=== PATIENT | male | born 1985 | race Asian ===

== ENCOUNTER 2019-11-08 11:20 | Emergency (ER) | payer BC, SELFPAY ==
[2019-11-08 11:38] VITALS: BP 111/75; PULSE 95; RESP 15; TEMP 37.1; O2SAT 98; BMI 23.1
--- NOTE | 2019-11-08 12:52 | PC.NURSE ---
Pt states 3 to 4 weeks of back pain and abdominal muscle pain associated with cough and congestion
--- NOTE | 2019-11-08 12:54 | XR_ITS ---
WS: [id number] LUMBAR SPINE 3 VIEWS HISTORY: 34 years old Male with pain AP, cone-down lateral, and lateral views lumbar spine no comparison FINDINGS: Lumbarization of S1. Vertebral body heights are maintained. No fracture, osteolytic or osteoblastic c hange. No vertebral listhesis or facet joint subluxation. Straightening of lumbar lordosis. SI and hi p joints anatomic. Question calculus overlying the left L4 transverse process. Moderate colon fecal r etention. XR/XR lumbar spine 2-3V* [id number] IMPRESSION: 1. Question left ureterolithiasis. Correlate clinically. 2. No lumbar spine fracture or subluxation. 3. Position of S1. 4. Moderate colon fecal retention/impaction.
--- NOTE | 2019-11-08 12:54 | XR_ITS ---
WS: [id number] TWO-VIEW CHEST HISTORY: 34 years old Male with cough, pain PA and lateral chest comparison 03/30/2014 FINDINGS: No pneumothorax, pleural effusion, consolidation/atelectasis. Cardiomediastinal silhouette and pulmon rhona vascular markings are unremarkable. No subdiaphragmatic free air. No fracture seen. XR/XR chest 2V* [id number] IMPRESSION: No acute cardiopulmonary findings, and no significant change from 03/30/2014.
--- NOTE | 2019-11-08 13:01 | W.ED.BACK ---
HPI - Back Pain/Injury General: Chief Complaint: Back Pain/Injury Stated Complaint: BACK PAIN Time Seen by Provider: 11/08/19 12:49 Source: patient Mode of arrival: ambulatory Limitations: no limitations History of Present Illness: HPI Narrative: Patient comes in today with complaints of low back pain for the last 3 weeks. Patient had been seen in Dr. Schaeffer's office and was given some injections in the muscle of the back and given a course of steroids without much relief. Patient comes in today due to tightness and worsening back pain. Patient appears mildly unwell. Patient appears in moderate to severe pain. MD elicited complaint: back pain Review of Systems General: Reports: 10 or more systems reviewed and unremarkable except in HPI and below Resp: Reports: non-productive cough Musc: Reports: back pain PFSH ED PFSH: Statuses (acute, chronic, etc) shown below reflect problem list status as previously entered and may not be historically accurate Social History Smoking and tobacco status: current every day smoker Physical Exam Const: COMMON NORMALS: no apparent distress and oriented x3 GENERAL APPEARANCE: cooperative HENMT: COMMON NORMALS: normocephalic, external ears normal and EAC's normal HEAD & SCALP: normal to inspection and normocephalic FACE & SINUS: normal facial exam NOSE: nasal discharge GENERAL EAR: hearing not grossly impaired EXTERNAL EAR: Yes external ears normal EXTERNAL AUDITORY CANAL: EAC's normal TYMPANIC MEMBRANE: TM normal on the right and TM abnormal TM laterality: left Details: dull, erythematous and fluid behind TM MOUTH: oral and palatal mucosa normal THROAT: posterior oropharynx normal Eye: COMMON NORMALS: PERRL and EOMs intact bilaterally PUPIL: Yes PERRL Neck/C-Spine: COMMON NORMALS: full ROM and no lymphadenopathy Lymph: LYMPHATIC: no lymphedema noted Chest: COMMONS NORMALS: inspection of chest normal and palpation of chest normal Resp: COMMON NORMALS: normal respiratory effort and clear to auscultation bilaterally AUSCULTATION: clear to auscultation bilaterally Cardio: COMMON NORMALS: regular rate and regular rhythm RATE: regular rate RHYTHM: regular rhythm GI: COMMON NORMALS: normal to inspection, nondistended, normoactive bowel sounds and non-tender Back/Pelvis: LUMBAR SPINE/LOWER BACK: Yes paraspinal muscle tenderness and Yes paraspinal muscle spasm Extremity: COMMON NORMALS: normal to inspection GENERAL: No edema Neuro: COMMON NORMALS: oriented x3, moves all extremities and no focal motor deficits Psych: COMMON NORMALS: mental status grossly normal and cooperative Skin: COMMON NORMALS: no rashes or lesions noted GENERAL SKIN EXAM: no rashes or lesions noted Course Vital Signs: Vital signs: Vital Signs Temperature 98.7 F 11/08/19 11:38 Pulse Rate 95 11/08/19 11:38 Respiratory Rate 15 11/08/19 11:38 Blood Pressure 111/75 11/08/19 11:38 Pulse Oximetry 98 11/08/19 11:38 MDM - Back Pain/Injury MDM Narrative: Medical decision making narrative: Patient comes in today with 3-week history of low back pain with muscle spasm. Patient appears in moderate to severe pain. Exam notes tight muscle in the paraspinous lumbar area. No vertebral tenderness is on palpation. Skin is warm and dry. Left tympanic membrane is erythematous and dull. Bilateral nasal mucosal is swollen with drainage. Posterior pharynx erythematous. Differential diagnosis includes influenza, sinusitis, urinary tract infection, renal calculi, constipation, intervertebral disc disease, facet arthropathy. X-ray of the lumbar spine noted possible left kidney stone otherwise normal spinal x-ray. X-ray of the chest was clear without signs of infiltrate or injury. Urinalysis was positive for hematuria. CBC noted some mild leukopenia. CMP was normal. CT scan was ordered due to the abnormality on the x-ray and hematuria. CT scan noted no hydronephrosis or obvious renal/ureteral stone. Large amount of stool was noted in the colon. Patient was given Toradol and orphenadrine in the emergency room for pain and had good results. Patient was prescribed naproxen and methocarbamol for further treatment for pain. Patient was put on cephalexin due to otitis media that was incidentally found. Patient reports understanding of care plan and need for follow-up. Lab Data: Labs: Lab Results 11/08/19 11/08/19 11/08/19 Range/Units 12:55 13:00 13:37 WBC 3.6 L (4.0-10.0) 10^3/ uL RBC 4.29 (4.1-5.3) 10^6/u L Hgb 13.5 (11.7-16.6) g/dL Hct 40.8 L (42.0-52.0) % MCV 95.1 H (80-94) fL MCH 31.5 (28.0-34.0) pg MCHC 33.1 (30.0-36.0) g/dL RDW 12.3 (12.1-15.1) % Plt Count 155 (130-400) 10^3/c mm MPV 9.9 (7.4-10.4) fL Neut % (Auto) 75.3 % Lymph % (Auto) 10.9 % Robertson % (Auto) 10.9 % Eos % (Auto) 2.0 % Baso % (Auto) 0.6 % Neut # (Auto) 2.7 (1.8-7.7) 10^3/u L Lymph # (Auto) 0.4 L (0.8-4.8) 10^3/u L Robertson # (Auto) 0.4 (0.2-0.9) 10^3/u L Eos # (Auto) 0.1 (0.0-0.8) 10^3/u L Baso # (Auto) 0.0 (0.0-0.1) 10^3/u L Nucleated RBC % (a uto) 0 % Nucleated RBCs # 0.0 /100WBC Sodium (136-145) mmol/L Potassium (3.5-5.1) mmol/L Chloride (98-107) mmol/L Carbon Dioxide (22-29) mmol/L Anion Gap (5-19) BUN (6-20) mg/dL Creatinine (0.7-1.2) mg/dL GFR Calculation (90-130) mL/min Glucose (65-115) mg/dL Calcium (8.5-10.5) mg/dL Total Bilirubin (0.15-1.2) mg/dL AST (0-40) U/L ALT (0-41) U/L Alkaline Phosphata se (40-130) IU/L Creatine Kinase (39-308) U/L Total Protein (6.6-8.7) g/dL Albumin (3.5-5.2) g/dL Globulin (1.3-4.6) g/dL Urine Color Straw (Yellow) Urine Appearance Sl hazy (CLEAR) Urine pH 5 (5-7) Ur Specific Gravit y 1.015 (1.005-1.030) Urine Protein Neg (Negative) Urine Glucose (UA) Norm (Normal) Urine Ketones Negative (Negative) Urine Occult Blood Trace H (Negative) Urine Nitrate Negative (Negative) Urine Bilirubin Neg (NEGATIVE) Urine Urobilinogen Norm (Negative) mg/dL Ur Leukocyte Marissa ase Negative (Negative) Urine RBC 0-4 H (0-2) /hpf Urine WBC 5-10 H (0-5) /hpf Ur Squamous Epith Cells 5-10 H (0-5) Urine Bacteria 1+ H (NONE) Hyaline Casts Rare Urine Mucus 2+ Influenza Type A A g Negative (Negative) POC Influenza B Ag Negative (Negative) 11/08/19 Range/Units 13:37 WBC (4.0-10.0) 10^3/ uL RBC (4.1-5.3) 10^6/u L Hgb (11.7-16.6) g/dL Hct (42.0-52.0) % MCV (80-94) fL MCH (28.0-34.0) pg MCHC (30.0-36.0) g/dL RDW (12.1-15.1) % Plt Count (130-400) 10^3/c mm MPV (7.4-10.4) fL Neut % (Auto) % Lymph % (Auto) % Robertson % (Auto) % Eos % (Auto) % Baso % (Auto) % Neut # (Auto) (1.8-7.7) 10^3/u L Lymph # (Auto) (0.8-4.8) 10^3/u L Robertson # (Auto) (0.2-0.9) 10^3/u L Eos # (Auto) (0.0-0.8) 10^3/u L Baso # (Auto) (0.0-0.1) 10^3/u L Nucleated RBC % (a uto) % Nucleated RBCs # /100WBC Sodium 140 (136-145) mmol/L Potassium 4.3 (3.5-5.1) mmol/L Chloride 102 (98-107) mmol/L Carbon Dioxide 28 (22-29) mmol/L Anion Gap 14.3 (5-19) BUN 13 (6-20) mg/dL Creatinine 1.0 (0.7-1.2) mg/dL GFR Calculation 84.5 L (90-130) mL/min Glucose 85 (65-115) mg/dL Calcium 9.4 (8.5-10.5) mg/dL Total Bilirubin 0.5 (0.15-1.2) mg/dL AST 15 (0-40) U/L ALT 10 (0-41) U/L Alkaline Phosphata se 60 (40-130) IU/L Creatine Kinase 82 (39-308) U/L Total Protein 7.7 (6.6-8.7) g/dL Albumin 4.7 (3.5-5.2) g/dL Globulin 3.0 (1.3-4.6) g/dL Urine Color (Yellow) Urine Appearance (CLEAR) Urine pH (5-7) Ur Specific Gravit y (1.005-1.030) Urine Protein (Negative) Urine Glucose (UA) (Normal) Urine Ketones (Negative) Urine Occult Blood (Negative) Urine Nitrate (Negative) Urine Bilirubin (NEGATIVE) Urine Urobilinogen (Negative) mg/dL Ur Leukocyte Marissa ase (Negative) Urine RBC (0-2) /hpf Urine WBC (0-5) /hpf Ur Squamous Epith Cells (0-5) Urine Bacteria (NONE) Hyaline Casts Urine Mucus Influenza Type A A g (Negative) POC Influenza B Ag (Negative) Discharge Plan Discharge Patient Disposition: Home, Self-Care Clinical Impression: Lumbar radiculopathy, Acute left otitis media Condition: Stable Prescriptions: New naproxen 500 mg tablet 500 mg PO BID Qty: 20 RF: 0 methocarbamol 750 mg tablet 750 mg PO Q6H PRN (Reason: muscle spasm) Qty: 40 RF: 0 cephalexin 500 mg capsule 500 mg PO TID 10 Days Qty: 30 RF: 0 Discharge Diet: Usual diet Discharge Activity: Increase activity as tolerated Patient Instructions: Lumbar Radiculopathy (ED) Activity Restrictions/Additional Instructions: Activity as tolerated Gentle stretching and range of motion exercise Follow-up with primary care in one week for recheck Take antibiotice, cephalexin, for upper respiratory infection and ear infection. Discharge Date/Time: 11/08/19 15:49 Coding Level of Care Code ED Seam Stayer for Chg Fwd Exam Problem Focused
[2019-11-08] MEDS: orphenadrine 30 mg/mL Inj 2 mL 60 MG IM (13:26)
[2019-11-08] MEDS: ketorolac 30 mg/mL INJ IM (13:30)
[2019-11-08 13:44] LABS: Basophils % 0.6 %; Eosinophils # 0.1 10^3/uL (0.0-0.8); Hematocrit 40.8 % (42.0-52.0); Hemoglobin 13.5 g/dL (11.7-16.6); Lymphocytes # 0.4 10^3/uL (0.8-4.8); Lymphocytes % 10.9 %; Mean Corpuscular HGB Conc 33.1 g/dL (30.0-36.0); Mean Corpuscular Hemoglobin 31.5 pg (28.0-34.0); Mean Corpuscular Volume 95.1 fL (80-94); Mean Platelet Volume 9.9 fL (7.4-10.4); Monocytes # 0.4 10^3/uL (0.2-0.9); Monocytes % 10.9 %; Neutrophils # 2.7 10^3/uL (1.8-7.7); Neutrophils % 75.3 %; Nucleated Red Blood Cells % 0 %; Platelet Count 155 10^3/cmm (130-400); Red Blood Count 4.29 10^6/uL (4.1-5.3); Red Cell Distribution Width 12.3 % (12.1-15.1); White Blood Count 3.6 10^3/uL (4.0-10.0)
[2019-11-08 13:53] LABS: Add Urine Microscopic? YES; Bilirubin Urine Neg (NEGATIVE); Blood Urine Trace (Negative); Glucose Urine UA Norm (Normal); Ketones Urine Negative (Negative); Leukocyte Esterase Urine Negative (Negative); Nitrate Urine Negative (Negative); Protein Urine Neg (Negative); Specific Gravity, Urine 1.015 (1.005-1.030); Urine Appearance SL Hazy (CLEAR); Urine Color Straw (Yellow); Urobilinogen Urine Norm (Negative); pH Urine 5 (5-7)
[2019-11-08 14:00] LABS: Hyaline Casts Urine RARE; Mucus Urine 2+
[2019-11-08 14:01] LABS: Add Urine Culture? No; Bacteria Urine 1+; RBC Urine 0-4 /hpf (0-2)
[2019-11-08 14:01] LABS: Alanine Aminotransferase 10 U/L (0-41); Albumin Level 4.7 g/dL (3.5-5.2); Alkaline Phosphatase 60 IU/L (40-130); Anion Gap 14.3 (5-19); Blood Urea Nitrogen 13 mg/dL (6-20); Calcium 9.4 mg/dL (8.5-10.5); Carbon Dioxide 28 mmol/L (22-29); Chloride 102 mmol/L (98-107); Creatine Phosphokinase 82 U/L (39-308); Glomerular Filtration Rate 84.5 mL/min (90-130); Glucose 85 mg/dL (65-115); Potassium 4.3 mmol/L (3.5-5.1); Sodium 140 mmol/L (136-145); Total Bilirubin 0.5 mg/dL (0.15-1.2); Total Protein 7.7 g/dL (6.6-8.7)
[2019-11-08 14:11] LABS: Aspartate Amino Transferase 15 U/L (0-40)
[2019-11-08 14:20] LABS: Influenza A by IFA Negative (Negative); Influenza B by IFA Negative (Negative)
--- NOTE | 2019-11-08 14:39 | CTR_ITS ---
PROCEDURE INFORMATION: Exam: CT Abdomen And Pelvis Without Contrast Exam date and time: 11/08/2019 2:54 PM Age: 34 years old Clinical indication: Abdominal pain; Other: Damion. Flank pain and lower back pain; Additional info: Hematuria TECHNIQUE: Imaging protocol: Computed tomography of the abdomen and pelvis without contrast. Total DLP: 586.35 mGy-cm Radiation optimization: All CT scans at this facility use at least one of these dose optimization techniques: automated exposure control; mA and/or kV adjustment per patient size (includes targeted exams where dose is matched to clinical indication); or iterative reconstruction. COMPARISON: No relevant prior studies available. FINDINGS: Liver: A small 11 mm cyst is present in segment VII of the liver. Several other smaller round hypodense lesions are also seen in segments VII and VIII of the liver that is too small to characterize, but may also be cysts. Gallbladder and bile ducts: Normal. No calcified stones. No ductal dilation. Pancreas: Normal. No ductal dilation. Spleen: Normal. No splenomegaly. Adrenals: Normal. No mass. Kidneys and ureters: Normal. No renal stone or hydronephrosis. Stomach and bowel: A large amount of stool is present in the colon. No intestinal obstruction. Appendix: The appendix is normal. Intraperitoneal space: Unremarkable. No free air. No significant fluid collection. Vasculature: Unremarkable. No abdominal aortic aneurysm. Lymph nodes: Unremarkable. No enlarged lymph nodes. Bladder: Unremarkable as visualized. Reproductive: Unremarkable as visualized. Bones/joints: Unremarkable. No acute fracture. Soft tissues: Unremarkable. CT/CT kidney stone [id number] IMPRESSION: No acute abnormality is seen. No renal stone is visualized. Possible constipation. Radiation Dose CTDIVOL = (mGy): DLP = 586.35 (mGy-cm)
[2019-11-08 15:48] VITALS: BP 106/66; PULSE 61; RESP 17; O2SAT 98
== END 2019-11-08 15:49 | disposition home or self-care (01) ==
PROVIDERS: Emergency Provider Nurse Practitioner Family
DX: M54.16 Radiculopathy, lumbar region (principal); H66.92 Otitis media, unspecified, left ear; F17.200 Nicotine dependence, unspecified, uncomplicated
CPT/HCPCS: 36415; 71046; 72100; 74176; 80053; 81001; 82550; 85025; 87804; 96372; 99282; 99283; A9270; J1885; J2360

== ENCOUNTER 2023-01-16 14:20 | Outpatient (CLI) | payer OTHER, SELFPAY ==
--- NOTE | 2023-01-16 14:42 | CT_ITS ---
WS: [id number] CT chest wo con [id number] HISTORY: CHRONIC COUGH TECHNIQUE: Axial imaging performed through the thorax. Coronal and sagittal reformats are submitted. All CT scans at [facility] use at least one of these dose optimization techniques: automated exposure control; mA and/or kV adjustment per patient size (includes targeted exams where dose is mat ched to clinical indication); or iterative reconstruction. CONTRAST: None DLP: 185.98 mGy.cm COMPARISON: Chest radiograph 01/03/2022, noncontrast abdomen CT 11/08/2019 Lungs and central airway: No pulmonary mass, nodule or pneumonia. No groundglass attenuation. Pleura: Normal. No pleural effusion. Heart and pericardium: Normal size heart with no pericardial effusion. Mediastinum and lety: No mediastinum or hilar adenopathy. Vessels: Normal size aortic and pulmonary artery. No coronary artery calcifications. Chest wall and lower neck: No soft tissue masses. Upper abdomen: Scattered low-attenuation lesions within the liver. These were also present in 2020 wi thout increase in size. The largest measures 13 mm in the RIGHT lobe. These are most likely cysts. No adrenal mass. Osseous structures: No destructive process. CT/CT chest wo con [id number] IMPRESSION: 1. Negative CT chest. No pneumonia or nodules. No adenopathy. 2. Stable low-attenuation lesions within the liver, likely stable hepatic cyst since 2019.
== END 2023-01-16 14:21 | disposition home or self-care (01) ==
LOC: RAD 14:32
PROVIDERS: PCP Family Medicine; Visit Provider Family Medicine
DX: R05.3 Chronic cough (principal); K76.89 Other specified diseases of liver
CPT/HCPCS: 71250

== ENCOUNTER 2024-01-24 13:45 | Outpatient (CLI) | payer SELFPAY ==
[2024-01-24 15:06] LABS: PH Semen 7.5 (7.0-8.0); Red Blood Count Semen 0-4 /hpf; Sperm Immotility 10 % (50-60); Sperm Progressive Motility 90 % (31-34); Viscosity Semen Droplets; White Blood Count Semen 0-4 /hpf
[2024-01-24 15:07] LABS: Pathology Referral Yes
== END 2024-02-06 14:20 | disposition home or self-care (01) ==
PROVIDERS: PCP Family Medicine; Visit Provider Family Medicine
DX: N46.9 Male infertility, unspecified (principal)
CPT/HCPCS: 80503; 89320